=== PATIENT | female | born 1985 | race African-American/Black ===

== ENCOUNTER 2025-02-13 01:11 | Day surgery (SDC) | payer BC, SELFPAY ==
--- NOTE | 2025-02-12 11:40 | PC.NURSE ---
[facility] has started construction of its new state of the art ER which will open Spring 2026. With this, we anticipate parking may be a challenge for some our surgical patients and families. Parking spaces are limited but are available for all Surgical, obstetrics, and ER patients sharing this lot. If you arrive and find you are having a hard time finding a parking space, please note that we understand the challenges, please drive around the hospital and park near Hospital Entrance 1. When you enter this entrance, you can ask a volunteer to direct or take you back to the surgical waiting area to check in. We appreciate everyone?s understanding of these expected challenges while we build for your future. Report to the Outpatient Waiting Room, entrance under the green pavilion located off [address], at time _0730AM on date _02/13/25 . Planned Procedure Time: _0930AM .? Time changes happen often and if your time is changed the preop area will call you the afternoon before. - You and your visitor will be asked to self-screen and do not enter if you have any COVID symptoms. Please call surgeon if you need to reschedule. - A mask is optional within the hospital at this time. Patients may have clear liquids (water, carbonated beverages, clear teas, apple juice) until 3 hours prior to surgery with a maximum of 20 ounces. - No food from midnight until time of surgery and no smoking, or chewing tobacco (or any form of nicotine). No chewing gum, candy or mints. - Take only the following medications with a SIP of water on the morning of surgery: _NONE DO NOT STOP ANY OF YOUR OTHER PRESCRIPTION MEDICATIONS PRIOR TO SURGERY EXCEPT THE FOLLOWING Hold all vitamins and supplements for 3 days per anesthesiologist. Medications to discontinue per physician NONE Date to take last dose___NONE Please no make-up, nail eritrean, hairspray, perfume, deodorant, or body powder the day of surgery.? No jewelry (including any body piercings) or valuables the day of surgery, leave them at home.? Please take a shower or bath the night before, or the morning of, surgery with an antibacterial soap.? Wear comfortable, loose fitting clothing.?BRING AN OVERNIGHT BAG WITH YOU - Jewelry must be removed prior to entering the operating room.? Rings and piercings that are not removed may be cut off. - The hospital will not accept responsibility for valuables.? - Please leave all valuables, including medications, at home the day of surgery. If you are going home after surgery, a licensed catering truck driver must drive you home.? - NO public transportation without another adult if you receive anesthesia. - We recommend that an adult stay with you for 24 hours following discharge. - We also recommend that you do not drive, make important decision, drink alcoholic beverages, or take any drugs that were not prescribed by your health care provider for at least 24 hours after your discharge time. Follow any additional instructions given to you from your surgeon. Telephone instructions given to __ASHA and asked if any additional questions and then verbalized understanding. Patient advised to call surgeon office or pre surgery nurse liaison [phone] if any additional questions.
[2025-02-13] VITALS (10 sets, daily range): BP systolic 107–145; BP diastolic 52–90; PULSE 60–79; RESP 14–20; TEMP 36.7–37.9; O2SAT 97–100; BMI 43.4
--- OUTSIDE RECORDS SUMMARY | 2025-02-13 01:14 | XMS_ITS | Clinical Summary ---
Author Organization [facility] Address [address] [place] [address] Care Team Providers Care Chart Collector Name Role Phone Unavailable Primary Care Provider Unavailabl e Social History Tobacco Use Types Packs/Day Years Used Date Smoking Tobacco: Never Assessed Comments Unknown Sex and Gender Information Value Date Recorded Sex Assigned at Not on file Legal Sex Female 11:18 AM CDT Gender Identity Not on file Sexual Orientation Not on file Plan of Treatment Health Maintenance Due Date Last Done Comments Hepatitis C Virus (HCV) Screening 1986 TdaP Immunization 1986 Hepatitis B Immunization (1 of 3 - 19+ 3-dose series) 2005 Pap Smear 10/25/2007 Human Papillomavirus (HPV) Immunization (1 - 3-dose SCDM series) 2013 Cervical Cancer Screening (CCS) 2016 HPV/Cotest 2016 Influenza Immunization (#1) 2024 SARS-COV-2 Immunization ( season) 2024 Respiratory Syncytial Virus (RSV) Immunization (Adult) (1 - 1-dose 75+ series) 2061 DTaP/Tdap/Td Immunization Discontinued 1991, 05/27/1988, 04/24/1987, Additional history exists Meningococcal Immunization (ACWY) Aged Out No longer eligible based on patient's age to complete this topic Pneumococcal Immunization Combined Aged Out No longer eligible based on patient's age to complete this topic Rotavirus Immunization Aged Out No lo nger eligible based on patient's age to complete this topic
--- OUTSIDE RECORDS SUMMARY | 2025-02-13 01:14 | XMS_ITS | Encounter Summary ---
Author Organization [facility] Address [address] [place] [address] Care Team Providers Care Nylon Machine Operator Name Role Phone Roseann Rizzo MD Primary Care Provider [phone] Encounter Details Date Type Department Care Team (Late st Contact Info) Description 04/28/2023 Mindjet Message Enc [facility] Family Medicine - [place] [address], [address] [place] [address] [place] [address] [place] [address] Meds Social History Tobacco Use Types Packs/Day Years Used Date Smoking Tobacco: Former Cigarettes Q uit: 09/2022 Passive Smoke Exposure: Never Smokeless Tobacco: Never Comments:Hookah not often. M ainly when drinking. Social smoker. Given by provider. Pt reports she has not smoked hookah for a while. Alcohol Use Standard Drinks/Week Comments Yes 1.7 (1 standard drin k = 0.6 oz pure alcohol) Not weekly but i do drink social drinker PHQ-2 Answer Date Recorded Patient Health Questionnaire-2 Score 0 03/29/2023 Comments No Sex and Gender Information Value Date Recorded Sex Assigned at Not on file Legal Sex Female 4:29 PM CDT Gender Identity Not on file Sexual Orientation Not on file documented as of this encounter Plan of Treatment Not on file documented as of this encounter Visit Diagnoses Not on filedocumented in this encounter Additional Health Concerns Assessment Noted Time PHQ-9 Depression Total Score: 1 03/29/19 24 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
--- OUTSIDE RECORDS SUMMARY | 2025-02-13 01:14 | XMS_ITS | Encounter Summary ---
Author Organization [facility] Address [address] [place] [address] Care Team Providers Care Auto Dealership Porter Name Role Phone Roseann Rizzo MD Primary Care Provider [phone] Encounter Details Date Type Department Care Team (Late st Contact Info) Description 09/22/2023 TapIn.tvt Message Enc [facility] Medical [facility] Family Medicine - [place] [address], [address] [place] [address] [place] [address] [place] [address] Pain Social History Tobacco Use Types Packs/Day Years [...] Time PHQ-9 Depression Total Score: 1 03/29/19 9: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
--- OUTSIDE RECORDS SUMMARY | 2025-02-13 01:14 | XMS_ITS | Clinical Summary ---
Author Organization [facility] [employer] Address [address] [place] [address] Care Team Providers Care Director Long Term Care Name Role Phone Fransisco Garcia MD Primary Care Provider [phone] Source Comments [facility] [employer]non-owned Affiliates and Associated Physician Practices is amultiple site organization consisting of ambulatory clinics and hospital sitesin [place], [place], [place] and [place]. This disclosure is being madepursuant to the Care Everywhere program and may not contain all information available regarding this patient. Last updated 17.[facility] [employer] Allergies No known active allergies Medications * Be aware that medications may not be up to date on this document. Alwaysverify current medications with the patient. fluticasone propionate (FLONASE) 50 MCG/ACT nasal sprayIndication s:Allergic Rhinitis [place] 2 sprays into each nostril once daily Reasons: Allergic Rhinitis 1 bottles 04/12/2018 Active Social History Tobacco Use Types Packs/Day Years Used Date Smoking Tobacco: Never Smokeless Tobacco: Never Comments No Sex and Gender Information Value Date Recorded Sex Assigned at Not on file Legal Sex Female 10:17 AM CDT Gender Identity Not on file Sexual Orientation Not on file Last Filed Vital Signs Vital Sign Reading Time Taken Comments Blood Pressure 124/84 04/12/2018 6:39 PM NECK SKEWER Pulse 79 04/12/2018 6:39 PM NECK SKEWER Temperature 36.6 C (97.9 F) 04/12/2018 6:39 PM NECK SKEWER Respiratory Rate 19 04/12/2018 6:39 PM NECK SKEWER Oxygen Saturation 97% 04/12/2018 6:39 PM NECK SKEWER Inhaled Oxygen Concentration - - Weight 90.7 kg (200 lb) 04/12/2018 6:39 PM NECK SKEWER Height 161.3 cm (5' 3.5) 04/12/2018 6:39 PM NECK SKEWER Body Mass Index 34.87 04/12/2018 6:39 PM NECK SKEWER Plan of Treatment Health Maintenance Due Date Last Done Comments HIV SCREENING 2001 HEPATITIS C SCREENING 10/19/2004 DTAP/TDAP/TD VACCINES (1 - Tdap) 2005 HEPATITIS B VACCINE (1 of 3 - 19+ 3-dose series) 2005 HPV VACCINE (1 - 3-dose SCDM series) 2013 DEPRESSION SCREENING 03/06/2024 COVID-19 VACCINE (1 - 2024-2 6 season) 2024 INFLUENZA VACCINE (#1) 2024 ZOSTER VACCINE (1 of 2) 2036 HIB VACCINE Aged Out No longer eligi ble based on patient's age to complete this topic MENINGOCOCCAL (Group B) VACC INE SHARED DECISION-MAKING Aged Out No longer eligibl e based on patient's age to complete this topic MENINGOCOCCAL GROUPS A/C/Y/W VACCINE Aged Out No longer eligible b ased on patient's age to complete this topic PNEUMOCOCCAL VACCINE Aged Out No long er eligible based on patient's age to complete this topic Insurance [facility] Care Teams Director Long Term Care Relationship Specialty Start Date End Date Fransisco Garcia MD [facility] [place] [address] PCP - General Family Medicine 08/06/17
--- OUTSIDE RECORDS SUMMARY | 2025-02-13 01:14 | XMS_ITS | Clinical Summary ---
Author Organization [facility] Address [address] [place] [address] Care Team Providers Care Cytogenetics Technologist Name Role Phone Roseann Rizzo MD Primary Care Provider Allergies No known active allergies Medications IRON OR Active B Complex Vitamins (VITAMIN B COMPLEX OR) Active semaglutide-weig ht management (WEGOVY) 2.4 mg/dose injection (PEN)Indications :Class 3 obesity (CMS/HCC) Inject 2.4 mg under the skin once weekly for weight loss. 3 mL 2 04/17/2024 Active Active Problems Problem Noted Date Diagnosed Date Class 3 obesity 04/17/2023 Immunizations Immunization Administration Dates Next Due Dtp (Generic) 11/01/1991, 9,04/24/1987,1986,1986 Hib (Generic) 11/03/1988 MMR (MMRII) 11/01/1991,02/02/1988 PFIZER COVID-19 (ORIGINAL FORMULATION, PURPLE CAP) mRNA, LNP-S, PF, 30 MCG/0.3 ML DOSE 10/19/2020,09/24/2020 Polio Opv (Generic) 11/01/1991, 9,04/24/1987,1986,1986 Family History Medical History Relation Comments Hypertension Maternal Aunt Breast Cancer Mother at a ge 29-30 Breast Cancer Other Colon Cancer Neg Hx Relation Status Comments Father Maternal Aunt Mother Niece/Nephew Alive Other Alive Social History Tobacco Use Types Packs/Day Years Used Date Smoking Tobacco: Former Cigarettes Q uit: 09/2022 Passive Smoke Exposure: Past Smokeless Tobacco: Never Tobacco Cessation:Counseling Given: No Comments:Hookah not often. Mainly when drinking. Social smoker. Given by provider. Pt reports she has not smoked hookah for a while. 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 Pulse 73 03/18/2024 9:22 AM SHOWROOM EXECUTIVE DIRECTOR Temperature 36.9 C (98.4 F) 03/18/2024 9:22 AM SHOWROOM EXECUTIVE DIRECTOR Respiratory Rate 16 03/18/2024 9:22 AM SHOWROOM EXECUTIVE DIRECTOR Oxygen Saturation 98% 03/18/2024 9:22 AM SHOWROOM EXECUTIVE DIRECTOR Inhaled Oxygen Concentration - - Weight 101.4 kg (223 lb 8 oz) 03/18/2024 9:22 AM SHOWROOM EXECUTIVE DIRECTOR Height 160 cm (5' 3) 03/18/2024 9:22 AM SHOWROOM EXECUTIVE DIRECTOR Body Mass Index 39.59 03/18/2024 9:22 AM SHOWROOM EXECUTIVE DIRECTOR Plan of Treatment Health Maintenance Due Date Last Done Comments Cervical Cancer Screening Pap Smear (Age 30 to 64) Every 3 Years 1986 Annual Physical 1989 DTaP, Tdap and Td Vaccines (6 - Tdap) 1997 11/01/1991, 05/27/1988, 04/24/1987, Additional history exists Hepatitis C 2004 Hepatitis B Vaccines (1 of 3 - 19+ 3-dose series) 2005 HPV Vaccines (1 - 3-dose SCDM series) 2013 Cervical Cancer Screening Pap with HPV Testing (Age 30 to 64) Every 5 Years 2016 Cervical Cancer Screening with HPV 2016 COVID-19 Vaccine ( season) 2024 10/19/2020, 09/24/2020 Influenza Adult (#1) 2024 PHQ-2 (Physician Nikolski) Completed 03/18/2024 Hepatitis A Vaccines Aged Out No long er eligible based on patient's age to complete this topic Meningococcal B Vaccine Aged Out No l onger eligible based on patient's age to complete this topic Meningococcal Vaccine Aged Out No katya nixon eligible based on patient's age to complete this topic Pneumococcal Vaccine: Pediatrics (0 to 5 Years) and At-Risk Patients (6 to 49 Years) Aged Out No longer eligible based on patient's age to complete this topic RSV Immunizations Under 20 Months Aged Out No longer eligible based on patient's age to complete this topic Insurance Care Teams Cytogenetics Technologist Relationship Specialty Start Date End Date Roseann Rizzo MD [address] [facility] [address] [place] [address] PCP - General FAMILY PRACTICE 08/09/22
--- OUTSIDE RECORDS SUMMARY | 2025-02-13 01:14 | XMS_ITS | Encounter Summary ---
Author Organization [facility] Address [address] [place] [address] Care Team Providers Care Intermediate Project Manager Name Role Phone Roseann Rizzo MD Primary Care Provider [phone] Encounter Details Date Type Department Care Team (Late st Contact Info) Description 07/05/2023 Selatrat Message Enc [facility] Family Medicine - [place] [address] [place] [phone] [place] [address] [place] [address] Meds Social History Tobacco Use Types Packs/Day [...] on file documented as of this encounter Progress Notes * Joan Plunkett MA - 07/05/2023 2:45 PM CDT Last office visit at this office: Last visit with ARGENTINA GAY in FAMILY PRACTICE was on: 06/16/2023 in [facility] Future appointment scheduled: Future Appointments Date Time Provider Department Center 08/11/2023 12:20 PM Argentina Gay MD [id number] * Joan Plunkett MA - 07/05/2023 2:42 PM CDTFrom: Samantha Hightower To: Dr. 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
--- OUTSIDE RECORDS SUMMARY | 2025-02-13 01:14 | XMS_ITS | Encounter Summary ---
Author Organization 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
--- NOTE | 2025-02-13 07:22 | WPDHPUPDATE1 ---
History and Physical Update Update Date/Time: 02/13/25 07:22 History and Physical has been reviewed, including an updated exam of the patient. There are NO changes in the patient's condition. Risks, benefits, and alternatives have been discussed and questions answered. Patient agrees to proceed with procedure.
[2025-02-13] MEDS: LACTATED RINGERS 1,000 ML 30 ML IV CONT ×2 (08:35→14:28)
[2025-02-13] MEDS: SCOPOLAMINE 1 MG PATCH 1 PATCH TRANSDERM (08:45)
[2025-02-13 08:49] LABS: Hematocrit 41.4 % (37.0-47.0); Hemoglobin 13.5 g/dL (12.0-15.0); Mean Corpuscular HGB Conc 32.6 g/dl (32-36); Mean Corpuscular Hemoglobin 28.5 pg (26-34); Mean Corpuscular Volume 87.3 fl (80-100); Platelet Count Result 294 k/mm3 (150-375); Red Blood Count 4.74 M/mm3 (4.2-5.4); White Blood Count 7.9 K/mm3 (4.5-10.0)
[2025-02-13] MEDS: KETOROLAC 15 MG/ML VIAL (*BKC) IV PUSH (08:57)
[2025-02-13] MEDS: ACETAMINOPHEN 500 MG TABLET 1000 MG PO ×3 (08:57→20:17)
--- NOTE | 2025-02-13 09:06 | P.PNAN_ITS ---
Anes - Initial Pre Proc Eval Procedure: Operation Date: 02/13/25 09:30 Proposed Procedures p Robotic Assisted Total Laparoscopic Hysterectomy with Bilateral Salpingectomy - Robb Park MD Date/Time: 02/13/25 09:06 Surgeon: Robb Park MD Pre Op Diagnosis: uterine fibroid Patient Data Age: 39 Gender: F Height: 1.6 m Weight: 111.3 kg Allergies Allergy/AdvReac Type Severity Reaction Status Date / Time No Known Allergies Allergy Mild Verified 02/13/25 08:52 Home Medications ?Medication ?Instructions ?Recorded ?Confirmed ?Type cyclobenzaprine 10 mg tablet 10 mg PO Q8H PRN spasms 0 11/16/23 02/12/25 History Laboratory Tests 02/13/25 08:00 WBC 7.9 K/mm3 (4.5-10.0) RBC 4.74 M/mm3 (4.2-5.4) Hgb 13.5 g/dL (12.0-15.0) Hct 41.4 % (37.0-47.0) MCV 87.3 fl (80-100) MCH 28.5 pg (26-34) MCHC 32.6 g/dl (32-36) RDW 15.4 H % (11.5-14.5) Plt Count 294 k/mm3 (150-375) MPV 10.1 fl (7.4-10.4) Patient hx anesthesia problems: none Family hx anesthesia problems: none Results Review: All pre-operative results and documents have been reviewed as part of the pre- operative evaluation. [facility] Past Medical History Medical History Family history of breast cancer Screening for malignant neoplasm of breast Tuberculosis carrier Surgical History Surgical History History of gynecological procedure Mirena iud insertion - 11/13/2009 History of hysteroscopy removal of iud - 2014 Delivery by section Hx of cholecystectomy xs2 Family History Family History Mother Breast cancer Social History Social History Smoking status: Never smoker Second hand tobacco smoke exposure: No Alcohol intake: current Alcohol use details: socially Substance use: never Substance use type: does not use Lack of Transportation: No Lack of Food: Never True Current Housing: I Have Housing Concerned About Future Housing: No Difficulty Paying Gas/Electric Bills: No Difficulty Paying for Meds: No Currently Unemployed: No Education: High School Diploma/GED Living arrangements: with family Occupation/Education: occupation 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 Gender identity (if verbalized by the patient): Female Sexual Orientation (if Verbalized by the Patient): Straight or Heterosexual Spiritual care concerns: No Anes - Eval Final PreProcedure Day of Procedure 02/13/25 09:06 Patient weight: morbidly obese Heart: regular rate and rhythm Lungs: clear to auscultation Airway: Mallampati scale class II Neurological: alert and oriented Last oral intake: >/= 8 hours ASA classification: III Emergent: no Anesthetic plan: proceed Anesthesia type and monitoring: general GIVS and standard monitoring Results Review: All pre-operative results and documents have been reviewed as part of the pre- operative evaluation. Informed Consent: The patient's anesthetic plan and its attendant risks and benefits were discussed with the patient/family/POA. Questions were solicited and answers provided to the satisfaction of the patient/family/POA.
[2025-02-13 09:11] LABS: BEDSIDEPREGUCG Negative (Negative)
[2025-02-13] MEDS: ceFAZolin 2 GM in SODIUM CHLORIDE 0.9% IV 50 ML 100 ML IVPB (09:27)
[2025-02-13] MEDS: metroNIDAZOLE 500 MG/ISO 100ML 500 MG/100 ML BAG 100 MG IVPB ×2 (09:59→20:15)
[2025-02-13] MEDS: fentaNYL CITRATE INJ (*CRX) 100 MCG/2 ML VIAL 25 MCG IV PUSH ×4 (13:36→13:52)
[2025-02-13] MEDS: ONDANSETRON INJ 4 MG/2 ML VIAL IV PUSH (13:36)
--- NOTE | 2025-02-13 13:42 | S_PTH ---
PATIENT: Samantha Hightower LOC: [facility] U#:[id number] AGE/SX: 39/F ROOM: RE02/13/[address]: Robb Park MD : 1985 BED: DIS: 02/14/2025 SPEC #: [id number] RECD: 02/13/25 13:44 STATUS: MARIANO REQ #: [id number] LEXUS: 02/13/25 13:[address]: Robb Park DEPT: [facility] Surgical RECD BY: Alecia Brown ENTERED: 02/13/25 13:44 SP TYPE: Surgical OTHR DR: Bonnie Fried, GARAGE HAND Tissues: A - Uterus Procedures: Hematoxylin and Eosin Stain Gross and Microscopic Level 5
--- NOTE | 2025-02-13 13:46 | W.PM.PROC2 ---
Procedure Note - Detailed Date of Procedure 02/13/25 Pre-op Diagnosis uterine fibroid Post-op Diagnosis Same Procedure Performed robot assist total laparoscopic hysterectomy with myomectomy and bilateral salpingectomy Surgeon Robb Park MD Anesthesia General Findings 1. Large uterine fibroid 2. Enlarged uterus (weight 538 grams) 3. Dense uterine adhesions to the anterior abdominal wall Description of Procedure Patient prepped and draped in usual manner this procedure. Vaginal instruments were placed for uterine mobility throughout the case. In abdominal trocar sites were then marked and trocars were placed. Initial trocars placed in left upper quadrant to be certain the rest of the trocar sites were able to be placed and instruments once placed able be utilized. Upon entry large midline fibroid was noted, uterus enlarged with dense adherence of the uterus to the anterior abdominal wall. Once all the trocars placed attached to the de Kathryn system, surgeon moved to the console for the procedure. First the right round ligament was cauterized and cut bladder portion was initially dissected in the posterior leaf the broad ligament was also entered. Utero-ovarian ligament was cauterized and cut to drop the ovary out of the operative field. Bladder was filled to see the limitations in where bladder was located. Once this was undertaken the adhesions of the anterior abdominal wall were taken down sharply and bluntly. Attention was then placed to the left where the round ligament was cauterized cut and incised bladder flap initially attempted to be performed without difficulty. Posterior leaf the broad ligament also was incised. Uterine vessels bilaterally cauterized and cut. At this point the uterine vessels had been separate from uterus, the uterus had been freed from the anterior abdominal wall, and anatomy had been restored as normally as possible with the previous surgery and adhesions that she had had. Circumferential incision was made around the cervix and the uterus was delivered into the vagina. Once the border of the fibroid was met in this was unable to be delivered any further. Attempts were made laparoscopically to cauterize and separate the fibroid in 2 pieces, to smoke and slow progress attention was then placed the vagina. Once at the vagina the uterus was removed and fibroid room was grasped with a single-tooth tenaculum. Using traction and counter traction vaginally the scissors were used to break the fibroid into multiple pieces and ultimately they were all delivered into the vagina without difficulty. Once this was done attention was placed to the pelvic cavity there was no significant bleeding and the vaginal cuff was closed using V lock suture from the right angle to the midline and left angle to the midline. Irrigation was undertaken and Keiko was placed empirically. Due to the dense adhesions and distorted anatomy Dr. Diaz enter the room perform cystoscope and made sure that both ureters were clear. They were, bladder integrity had already been evaluated during the procedure, and at this point the procedure was considered terminated, gas was allowed to escape, incisions approximated using 4-0 Monocryl and the patient was sent to recovery in stable condition. Estimated Blood Loss 600 Drains No Packing No Pathology Yes Complications No immediate complications Condition Stable Disposition PACU [facility] Billing Surgery - Charge Forward: Surgery Billing
--- NOTE | 2025-02-13 14:35 | PC.NURSE ---
This patient, Samantha Hightower, was received from PACU via bed on 02/13/25 at 1435. Patient/family oriented to unit policies and routines.
[2025-02-13] MEDS: KETOROLAC 30 MG/ML VIAL (*BKC) IV PUSH ×2 (15:09→20:16)
[2025-02-13] MEDS: oxyCODONE HCL (*CRX) 5 MG TAB IR PO (15:13)
[2025-02-13] MEDS: DEXTROSE 5%/LACTATED RINGERS 1,000 ML 125 ML IV CONT (15:13)
[2025-02-13] MEDS: SIMETHICONE 80 MG TAB.CHEW PO (17:00)
[2025-02-13] MEDS: DOCUSATE SODIUM 100 MG CAPSULE PO (17:39)
[2025-02-13] MEDS: oxyCODONE HCL (*CRX) 5 MG TAB IR 10 MG PO (20:20)
[2025-02-14] MEDS: DEXTROSE 5%/LACTATED RINGERS 1,000 ML 125 ML IV CONT (00:35)
[2025-02-14 03:37] VITALS: BP 97/54; PULSE 69; RESP 18; TEMP 37; O2SAT 100
[2025-02-14] MEDS: ACETAMINOPHEN 500 MG TABLET 1000 MG PO ×2 (03:39→09:49)
[2025-02-14] MEDS: KETOROLAC 30 MG/ML VIAL (*BKC) IV PUSH (03:39)
[2025-02-14 04:50] LABS: Hematocrit 31.8 % (37.0-47.0); Hemoglobin 10.1 g/dL (12.0-15.0); Immature Granulocyte Percent A 0.1 % (0-0.5); Lymphocytes Absolute Auto 1.93 K/mm3 (0.9-3.2); Mean Corpuscular HGB Conc 31.8 g/dl (32-36); Mean Corpuscular Hemoglobin 28.0 pg (26-34); Mean Corpuscular Volume 88.1 fl (80-100); Nucleated Red Blood Cells Absolute Auto 0.000 K/mm3 (0.0-0.012); Nucleated Red Blood Cells Perc 0.0 % (0.0-0.2); Platelet Count Result 264 k/mm3 (150-375); Red Blood Count 3.61 M/mm3 (4.2-5.4); White Blood Count 8.0 K/mm3 (4.5-10.0)
[2025-02-14] MEDS: ONDANSETRON INJ 4 MG/2 ML VIAL IV PUSH (07:05)
[2025-02-14] MEDS: oxyCODONE HCL (*CRX) 5 MG TAB IR 10 MG PO ×2 (07:09→14:13)
[2025-02-14] MEDS: SIMETHICONE 80 MG TAB.CHEW PO ×2 (07:09→14:13)
[2025-02-14 08:55] VITALS: BP 123/60; PULSE 62; RESP 18; TEMP 37.4; O2SAT 100
[2025-02-14] MEDS: metroNIDAZOLE 500 MG/ISO 100ML 500 MG/100 ML BAG 100 MG IVPB (09:48)
[2025-02-14] MEDS: DOCUSATE SODIUM 100 MG CAPSULE PO (09:49)
[2025-02-14] MEDS: IBUPROFEN 600 MG TABLET PO (09:49)
[2025-02-14] MEDS: SODIUM CHLORIDE 0.9% IV 100 ML 30 ML (09:49)
--- NOTE | 2025-02-14 10:36 | WPDANESPN ---
Anes - Prog Note Post-Op Date/Time: 02/14/25 10:36 Cardiovascular status: normal Respiratory status: normal Airway patency: baseline Mental status: baseline Post-Op hydration status: normal Vital Signs: Last Vital Signs Temp 37.4 C 02/14/25 08:55 Pulse 62 02/14/25 08:55 Resp 18 02/14/25 08:55 BP 123/60 02/14/25 08:55 Pulse Ox 100 02/14/25 08:55 O2 Del Method Room Air 02/14/25 03:37 O2 Flow Rate 8 02/13/25 13:18 Pain Score (VAS): 2 I/O: Intake & Output 02/13/25 02/14/25 02/14/25 23:59 07:59 15:59 Intake Total 1150 Output Total 850 650 100 Balance 300 -650 -100 Laboratory Tests 02/14/25 04:29 02/14/25 04:29 WBC 8.0 RBC 3.61 L Hgb 10.1 L D Hct 31.8 L MCV 88.1 MCH 28.0 MCHC 31.8 L RDW 15.1 H Plt Count 264 MPV 10.2 Immature Gran % (Auto) 0.1 Neut % (Auto) 65.9 Lymph % (Auto) 24.1 [place] % (Auto) 9.7 H Eos % (Auto) 0.1 Baso % (Auto) 0.1 L Lymph # (Auto) 1.93 [place] # (Auto) 0.8 H Eos # (Auto) 0.0 Baso # (Auto) 0.0 Abs Immat Gran (auto) 0.01 Absolute Neuts (auto) 5.3 Absolute Nucleated RBC 0.000 Nucleated RBC % 0.0 Post-procedural complaints: none Patient Feedback: Patient satisfied with anesthetic care.
== END 2025-02-14 14:25 | disposition home or self-care (01) ==
LOC: ANHSURGERY 07:52 → ANHOB2 14:31
PROVIDERS: Urology; PCP Nurse Practitioner; Visit Provider Obstetrics & Gynecology
PROC: (CPT 58573; principal; 2025-02-13 09:30)
PROC: 0TJB8ZZ Inspection of Bladder, Via Natural or Artificial Opening Endoscopic (ICD-10-PCS; CPT 52000; 2025-02-13 09:30)
DX: D25.9 Leiomyoma of uterus, unspecified (principal); N88.8 Other specified noninflammatory disorders of cervix uteri; N83.8 Other noninflammatory disorders of ovary, fallopian tube and broad ligament; N73.6 Female pelvic peritoneal adhesions (postinfective); E66.01 Morbid (severe) obesity due to excess calories; Z68.41 Body mass index [BMI] 40.0-44.9, adult
CPT/HCPCS: 58573; S2900; 36415; 85025; 85027; 86850; 86900; 86901; 88307; 99199; J0690; A9270; C1758; J1100; J1836; J1885; J2003; J2250; J2405; J2704; J3010; J7030; J7120; J7121; Q9968